=== PATIENT | female | born 1965 | race Caucasian/White ===

== ENCOUNTER → 2023-09-13 | Outpatient (CLI) | payer OTHER ==
[~2023-09-13] MED LIST: IBUP600 PO; LEVSOD75 PO; PRAV10 PO; VERA120 PO
[2023-09-16 15:00] LABS: HPV HIGH RISK BY TMA Not Detected; HPV SOURCE Cervical
== END ==
LOC: LAB SHORT 13:41 → LAB 13:41
PROVIDERS: Obstetrics & Gynecology
DX: Z01.419 Encounter for gynecological examination (general) (routine) without abnormal findings (principal)
CPT/HCPCS: 87624; G0123